=== PATIENT | female | born 1950 | race Two or more races ===

== ENCOUNTER 2021-03-29 20:56 | Emergency (ER) | payer OTHER ==
[2021-03-29] MEDS ORDERED: INSULIN REGULAR HUMAN 100 UNITS/ML *VIAL IVPUSH ONE ×2 (21:14→21:33)
[2021-03-29 21:22] LABS: VENOUS BASE EXCESS -14.5 mmol/L (-2-2)
[2021-03-29 21:23] LABS: BASO % 0.9 % (0-2.0); EOS % 0.4 % (0-4.5); HEMATOCRIT 32.7 % (32.4-45.2); HEMOGLOBIN 10.1 GM/dL (10.7-15.3); MCH 27.2 pg (25.7-33.7); MEAN CELL VOLUME 87.7 fl (80-96); MEAN PLT VOLUME 9.9 fl (7.5-11.1); MONO % 1.8 % (3.8-10.2); NEUT % 68.9 % (42.8-82.8); PLATELET COUNT 101 10^3/uL (134-434); RBC 3.72 M/mm3 (3.60-5.2); RDW 15.5 % (11.6-15.6); WHITE BLOOD COUNT 8.3 K/mm3 (4.0-10.0)
[2021-03-29 21:27] LABS: VENOUS PCO2 112.2 mmHg (38-52); VENOUS PH 6.864 (7.310-7.410)
[2021-03-29] MEDS ORDERED: NOREPINEPHRINE D5W PREMIX 16,000 MCG/500 ML BAG IVPB SCH (21:30)
[2021-03-29] MEDS ORDERED: SODIUM BICARBONATE 8.4% 50 MEQ/50 ML VIAL IVPUSH ONE (21:30)
[2021-03-29] MEDS ORDERED: SODIUM BICARBONATE 8.4% - 50 ML ONE (21:31)
[2021-03-29 21:34] VITALS: BP 00/00; PULSE 0; BMI 31.6
[2021-03-29 21:34] LABS: INR 1.15 (0.83-1.09); PROTHROMBIN TIME (PATIENT) 13.5 SEC (9.7-13.0)
[2021-03-29 21:36] LABS: ACTIVATED PTT 49.8 SECONDS (25.2-36.5)
[2021-03-29] MEDS ORDERED: DEXTROSE 5%-WATER 500 ML PVC-FREE INFUS.BAG IV ONE (21:37)
[2021-03-29] MEDS ORDERED: INSULIN DRIP - PLEASE ORDER UNDER SETS NR ONE (21:37)
[2021-03-29 21:42] LABS: CHLORIDE 100 mmol/L (98-107); SODIUM 139 mmol/L (136-145)
[2021-03-29 21:44] LABS: ALBUMIN 2.1 g/dl (3.4-5.0); BLOOD UREA NITROGEN 29.7 mg/dL (7-18); CALCIUM 10.6 mg/dL (8.5-10.1); CO2 20 mmol/L (21-32)
[2021-03-29] MEDS ORDERED: INSULIN REGULAR 100 UNITS in SODIUM CHLORIDE 99 ML IVPB SCH (21:45)
[2021-03-29] MEDS ORDERED: DEXTROSE 5%-WATER - 1,000 ML IV SCH (21:45)
[2021-03-29 21:47] LABS: SGOT/AST 253 U/L (15-37); SGPT/ALT 112 U/L (13-61)
[2021-03-29 21:49] LABS: BILIRUBIN,TOTAL 0.2 mg/dL (0.2-1); TOT PROT 6.4 g/dl (6.4-8.2)
[2021-03-29 21:50] LABS: ALK PHOS 77 U/L (45-117)
[2021-03-29] MEDS ORDERED: EPINEPHrine 1:10,000 (P-F SYR) 1 MG/10 ML DISP.SYRIN ONE ×2 (21:51→22:15)
[2021-03-29] MEDS ORDERED: VASOPRESSIN 40 UNITS/100 ML BAG IV SCH (22:15)
[2021-03-29 22:19] LABS: ANION GAP 19 MMOL/L (8-16); GLUCOSE,RANDOM 473 mg/dL (74-106)
== END 2021-03-29 23:01 | disposition expired ==
LOC: JER 20:56
PROC: 06H Lower Veins, Insertion (ICD-10-PCS; principal; 2021-03-29)
DX: I46.9 Cardiac arrest, cause unspecified (principal)
CPT/HCPCS: 36415; 36510; 71045-TC-FY; 80053; 82803; 82962; 84484; 85025; 85610; 85730; 86850; 86900; 86901; 93005; 93010; 99285-25; C9803; U0003; U0005